=== PATIENT | male | born 1955 | race Caucasian/White ===

== ENCOUNTER 2019-06-18 00:49 | Emergency (ER) | payer BC ==
[~2019-06-18] VITALS: Ht 182.9 cm; Wt 121.6 kg
[~2019-06-18 00:49] MED LIST: ALBU90OI6 INH; K-Dur20 MEQ PO; LOSARTAN-HCTZ1 EAC1 PO
== END 2019-06-18 02:20 | disposition home or self-care (01) ==
LOC: ER 00:49
DX: S43.014A Anterior dislocation of right humerus, initial encounter (principal); F17.210 Nicotine dependence, cigarettes, uncomplicated; Z79.899 Other long term (current) drug therapy; Z79.51 Long term (current) use of inhaled steroids; W01.0XXA Fall on same level from slipping, tripping and stumbling without subsequent striking against object, initial encounter
CPT/HCPCS: 23655; 73020; 73030; 99284-25; J2405; J2704; J7030

== ENCOUNTER → 2020-04-15 | Outpatient (CLI) | payer MEDICARE ==
[~2020-04-15] MED LIST changes: +HYDCHL25 PO; +IBUP800 PO; +LOSA50 PO; +QVAR REDIHALE10.6 G2 IH
[2020-04-15 17:56] LABS: BASOPHILS ABSOLUTE AUTO 0.03 K/mm3 (0.00-0.23); BASOPHILS PERCENT AUTO 1 % (0-2); EOSINOPHILS PERCENT AUTO 4 % (0-6); Hematocrit 43.5 % (37.0-53.0); Hemoglobin 14.5 g/dL (13.5-17.5); IMMATURE GRAN ABSOLUTE AUTO 0.01 K/mm3 (0.00-0.10); IMMATURE GRAN PERCENT AUTO 0 % (0-1); LYMPHOCYTES ABSOLUTE AUTO 1.72 K/mm3 (0.84-5.20); LYMPHOCYTES PERCENT AUTO 35 % (21-46); MONOCYTES ABSOLUTE AUTO 0.43 K/mm3 (0.16-1.47); MONOCYTES PERCENT AUTO 9 % (4-13); Mean Corpuscular HGB 31.8 pg (26.0-34.0); Mean Corpuscular HGB Conc 33.3 g/dL (31.5-36.5); Mean Corpuscular Volume 95 fL (80-100); Mean Platelet Volume 9.4 fL (9.1-12.4); NEUTROPHILS ABSOLUTE AUTO 2.47 K/mm3 (1.96-9.15); NEUTROPHILS PERCENT AUTO 51 % (41-73); Platelet Count 248 K/mm3 (150-400); RDW Coefficient Variation 14.3 % (11.7-14.2); RDW Standard Deviation 50.4 fL (35.1-46.3); Red Blood Cell Count 4.56 M/mm3 (4.30-5.90); White Blood Cell Count 4.86 K/mm3 (4.00-11.30)
[2020-04-15 18:23] LABS: Alanine Aminotransfer (ALT/SGP 29 U/L (12-78); Albumin, Blood 3.8 g/dL (3.4-5.0); Albumin/Globulin Ratio 0.9 (0.8-1.8); Alk Phos 117 U/L (50-136); Anion Gap 4 mmol/L (6-16); Aspartate Aminotrans (AST/SGOT 25 U/L (12-37); Bilirubin, Total 0.6 mg/dL (0.1-1.0); Blood Urea Nitrogen 17 mg/dL (8-24); Bun/Creatinine Ratio 17.8 (12.0-20.0); CO2, Blood 27 mmol/L (21-32); Calcium, Blood 8.8 mg/dL (8.5-10.1); Chloride, Blood 106 mmol/L (98-108); Creatinine, Blood 0.96 mg/dL (0.60-1.20); Globulin, Blood 4.2 g/dL (2.2-4.0); Glomerular Filtration Rate >60 (60-); Glucose, Blood 87 mg/dL (70-99); Potassium, Blood 4.2 mmol/L (3.5-5.5); Sodium, Blood 137 mmol/L (136-145)
== END | disposition home or self-care (01) ==
LOC: LAB 14:30 → LAB SHORT 14:30
PROVIDERS: Nurse Practitioner Family
DX: I10 Essential (primary) hypertension (principal)
CPT/HCPCS: 80053; 85025

== ENCOUNTER → 2021-01-24 | Outpatient (CLI) | payer MEDICARE ==
[2021-01-24 19:44] LABS: Alanine Aminotransfer (ALT/SGP 38 U/L (12-78); Albumin, Blood 3.4 g/dL (3.4-5.0); Albumin/Globulin Ratio 0.9 (0.8-1.8); Alk Phos 106 U/L (50-136); Anion Gap 6 mmol/L (6-16); Aspartate Aminotrans (AST/SGOT 32 U/L (12-37); Bilirubin, Total 0.8 mg/dL (0.1-1.0); Blood Urea Nitrogen 19 mg/dL (8-24); Bun/Creatinine Ratio 20.5 (12.0-20.0); CO2, Blood 28 mmol/L (21-32); Calcium, Blood 8.6 mg/dL (8.5-10.1); Chloride, Blood 107 mmol/L (98-108); Creatinine, Blood 0.93 mg/dL (0.60-1.20); Globulin, Blood 3.8 g/dL (2.2-4.0); Glomerular Filtration Rate >60 (60-); Glucose, Blood 111 mg/dL (70-99); Potassium, Blood 4.2 mmol/L (3.5-5.5); Sodium, Blood 141 mmol/L (136-145); Total Protein, Blood 7.2 g/dL (6.4-8.2)
== END | disposition home or self-care (01) ==
LOC: LAB SHORT 17:37
PROVIDERS: Nurse Practitioner Family
DX: I10 Essential (primary) hypertension (principal)
CPT/HCPCS: 80053

== ENCOUNTER → 2022-06-15 | Outpatient (CLI) | payer MEDICARE ==
[2022-06-15 19:33] LABS: BASOPHILS ABSOLUTE AUTO 0.04 K/mm3 (0.00-0.23); BASOPHILS PERCENT AUTO 1 % (0-2); EOSINOPHILS ABSOLUTE AUTO 0.24 K/mm3 (0.00-0.68); EOSINOPHILS PERCENT AUTO 3 % (0-6); Hematocrit 38.2 % (37.0-53.0); Hemoglobin 12.5 g/dL (13.5-17.5); IMMATURE GRAN ABSOLUTE AUTO 0.02 K/mm3 (0.00-0.10); IMMATURE GRAN PERCENT AUTO 0 % (0-1); LYMPHOCYTES ABSOLUTE AUTO 1.43 K/mm3 (0.84-5.20); LYMPHOCYTES PERCENT AUTO 20 % (21-46); MONOCYTES ABSOLUTE AUTO 0.55 K/mm3 (0.16-1.47); MONOCYTES PERCENT AUTO 8 % (4-13); Mean Corpuscular HGB 30.9 pg (26.0-34.0); Mean Corpuscular HGB Conc 32.7 g/dL (31.5-36.5); Mean Corpuscular Volume 95 fL (80-100); Mean Platelet Volume 9.8 fL (9.1-12.4); NEUTROPHILS ABSOLUTE AUTO 4.92 K/mm3 (1.96-9.15); NEUTROPHILS PERCENT AUTO 68 % (41-73); Platelet Count 201 K/mm3 (150-400); RDW Coefficient Variation 17.7 % (11.7-14.2); RDW Standard Deviation 61.4 fL (35.1-46.3); Red Blood Cell Count 4.04 M/mm3 (4.30-5.90)
[2022-06-15 19:45] LABS: Bun/Creatinine Ratio 17.1 (12.0-20.0); Calcium, Blood 8.1 mg/dL (8.5-10.1); Creatinine, Blood 1.05 mg/dL (0.60-1.20)
[2022-06-19 05:09] LABS: HIV AB/P24 AG SCREEN Non Reactive (Non Reactive)
== END | disposition home or self-care (01) ==
LOC: LAB SHORT 15:50 → LAB 15:50
PROVIDERS: Nurse Practitioner Family
DX: Z11.59 Encounter for screening for other viral diseases (principal); D64.9 Anemia, unspecified; I10 Essential (primary) hypertension
CPT/HCPCS: 80048; 85025; 86803; 87389

== ENCOUNTER 2023-02-25 10:27 | Inpatient (IN) | payer MEDICARE ==
[~2023-02-25] VITALS: Ht 182.9 cm; Wt 116.0 kg
[2023-02-25] VITALS (11 sets, daily range): BP systolic 67–121; BP diastolic 40–87
[2023-02-25 11:52] LABS: Bicarbonate Venous 24.3 mmol/L (24.0-30.0); PCO2 Venous 50.1 mmHg (38-42); pH Blood Venous 7.34 (7.34-7.37)
[2023-02-25 12:15] LABS: Hematocrit 42.8 % (37.0-53.0); Hemoglobin 15.2 g/dL (13.5-17.5); Mean Corpuscular HGB 32.6 pg (26.0-34.0); Mean Corpuscular HGB Conc 35.5 g/dL (31.5-36.5); Mean Corpuscular Volume 92 fL (80-100); Mean Platelet Volume 9.4 fL (9.1-12.4); Platelet Count 465 K/mm3 (150-400); RDW Coefficient Variation 14.9 % (11.7-14.2); RDW Standard Deviation 50.5 fL (35.1-46.3); Red Blood Cell Count 4.66 M/mm3 (4.30-5.90); White Blood Cell Count 14.71 K/mm3 (4.00-11.30)
[2023-02-25 12:22] LABS: Magnesium, Blood 2.8 mg/dL (1.6-2.4)
[2023-02-25 12:22] LABS: International Normalized Ratio 1.14; Prothrombin Time Results 11.9 Sec (9.7-11.5)
[2023-02-25 12:44] LABS: Albumin, Blood 2.8 g/dL (3.4-5.0); Albumin/Globulin Ratio 0.5 (0.8-1.8); Bilirubin, Total 0.6 mg/dL (0.1-1.0); Bun/Creatinine Ratio 10.3 (12.0-20.0); Calcium, Blood 6.6 mg/dL (8.5-10.1); Creatinine, Blood 12.2 mg/dL (0.60-1.20); Globulin, Blood 5.1 g/dL (2.2-4.0); Potassium, Blood 2.5 mmol/L (3.5-5.5); Total Protein, Blood 7.9 g/dL (6.4-8.2)
[2023-02-25 12:59] LABS: BAND PERCENT MAN 38 % (0-8); BASOPHILS PERCENT MAN 0 % (0-2); EOSINOPHILS PERCENT MAN 0 % (0-6); LYMPHOCYTES % ATYPICAL MANUAL 1 % (0-0); LYMPHOCYTES ABSOLUTE MAN 1.17 K/mm3 (0.84-5.20); LYMPHOCYTES PERCENT MAN 7 % (21-46); MONOCYTES ABSOLUTE MAN 1.02 K/mm3 (0.16-1.47); MONOCYTES PERCENT MAN 7 % (4-13); SEG NEUTROPHILS PERCENT MAN 47 % (41-73); TOTAL CELLS COUNTED 100
[2023-02-25 13:36] LABS: Influenza A, PCR NEGATIVE (NEGATIVE); Influenza B, PCR NEGATIVE (NEGATIVE); Resp Syncytial Virus, PCR NEGATIVE (NEGATIVE); SARS-Cov-2 (COVID-19) PCR, MMC NEGATIVE (NEGATIVE)
[2023-02-25 13:49] LABS: Source, Urine Straight Cath
[2023-02-25 13:58] LABS: Appearance, Urine Hazy (Clear); Bilirubin, Urine 2+ (Neg); Blood, Urine 1+ (Neg); Color, Urine Brown (P-Yellow); Glucose Qualitative, Urine 1+ (Neg); Ketones, Urine 1+ (Neg); Leukocyte Esterase, Urine 2+ (Neg); Nitrite, Urine Pos (Neg); Protein, Urine 2+ (Neg); Specific Gravity, Urine 1.025 (1.003-1.022); Urobilinogen, Urine 1+ (Normal)
[2023-02-25 14:05] LABS: Bacteria Many /hpf; Granular Casts 0-2 /lpf (0); Mucus Light (0-Heavy); Squamous Epithelial Cells Rare /hpf (Few)
[2023-02-25 14:20] LABS: Adenovirus F 40/41 Not Detected (NOT DETECT); Astrovirus Not Detected (NOT DETECT); Campylobacter Sp Not Detected (NOT DETECT); Cryptosporidium Not Detected (NOT DETECT); Cyclospora Cayetanensis Not Detected (NOT DETECT); E. Coli O157 Not Detected (NOT DETECT); Entamoeba Histolytica Not Detected (NOT DETECT); Enteroaggregative E. coli-EAEC Not Detected (NOT DETECT); Enteropathogenic E. coli-EPEC Detected (NOT DETECT); Enterotoxigenic E. coli-ETEC Not Detected (NOT DETECT); Giardia Lamblia Not Detected (NOT DETECT); Norovirus GI/GII Not Detected (NOT DETECT); Plesiomonas Shigelloides Not Detected (NOT DETECT); Rotavirus A Not Detected (NOT DETECT); Salmonella Sp Not Detected (NOT DETECT); Sapovirus Not Detected (NOT DETECT); Shiga Toxin-prod E. coli-STEC Not Detected (NOT DETECT); Shigella/Enteroin E. coli-EIEC Not Detected (NOT DETECT); Vibrio Cholerae Not Detected (NOT DETECT); Vibrio Sp Not Detected (NOT DETECT); Yersinia Enterocolitica Not Detected (NOT DETECT)
[2023-02-25 20:34] LABS: Magnesium, Blood 2.4 mg/dL (1.6-2.4)
[2023-02-25 20:38] LABS: Albumin, Blood 2.2 g/dL (3.4-5.0); Anion Gap 18 mmol/L (6-16); Blood Urea Nitrogen 141 mg/dL (8-24); Bun/Creatinine Ratio 12.9 (12.0-20.0); CO2, Blood 19 mmol/L (21-32); Calcium, Blood 5.4 mg/dL (8.5-10.1); Chloride, Blood 96 mmol/L (98-108); Glomerular Filtration Rate 5 (60-); Glucose, Blood 130 mg/dL (70-99); Potassium, Blood 2.6 mmol/L (3.5-5.5); Sodium, Blood 133 mmol/L (136-145)
[2023-02-25 20:40] LABS: Phosphorus, Blood 7.8 mg/dL (2.5-4.9)
[2023-02-26] VITALS (62 sets, daily range): BP systolic 77–167; BP diastolic 42–95
[2023-02-26 04:26] LABS: Hematocrit 37.1 % (37.0-53.0); Hemoglobin 13.1 g/dL (13.5-17.5); Mean Corpuscular HGB 32.7 pg (26.0-34.0); Mean Corpuscular HGB Conc 35.3 g/dL (31.5-36.5); Mean Corpuscular Volume 93 fL (80-100); Platelet Count 369 K/mm3 (150-400); RDW Standard Deviation 51.4 fL (35.1-46.3); Red Blood Cell Count 4.01 M/mm3 (4.30-5.90)
[2023-02-26 04:43] LABS: BAND PERCENT MAN 14 % (0-8); BASOPHILS PERCENT MAN 0 % (0-2); EOSINOPHILS PERCENT MAN 1 % (0-6); LYMPHOCYTES % ATYPICAL MANUAL 1 % (0-0); LYMPHOCYTES PERCENT MAN 9 % (21-46); METAMYELOCYTE PERCENT MAN 1 % (0-0); MONOCYTES PERCENT MAN 7 % (4-13); SEG NEUTROPHILS PERCENT MAN 67 % (41-73); TOTAL CELLS COUNTED 100
[2023-02-26 04:45] LABS: BASOPHILS PERCENT AUTO 0 % (0-2); EOSINOPHILS ABSOLUTE AUTO 0.08 K/mm3 (0.00-0.68); EOSINOPHILS PERCENT AUTO 1 % (0-6); IMMATURE GRAN ABSOLUTE AUTO 0.11 K/mm3 (0.00-0.10); IMMATURE GRAN PERCENT AUTO 1 % (0-1); NEUTROPHILS ABSOLUTE AUTO 9.12 K/mm3 (1.96-9.15); NEUTROPHILS PERCENT AUTO 79 % (41-73)
[2023-02-26 05:03] LABS: Magnesium, Blood 2.4 mg/dL (1.6-2.4); Uric Acid, Blood 15.6 mg/dL (3.5-7.2)
[2023-02-26 05:08] LABS: Alanine Aminotransfer (ALT/SGP 19 U/L (12-78); Albumin, Blood 2.3 g/dL (3.4-5.0); Albumin/Globulin Ratio 0.6 (0.8-1.8); Alk Phos 74 U/L (50-136); Anion Gap 18 mmol/L (6-16); Aspartate Aminotrans (AST/SGOT 30 U/L (12-37); Bilirubin, Total 0.4 mg/dL (0.1-1.0); Blood Urea Nitrogen 140 mg/dL (8-24); Bun/Creatinine Ratio 12.8 (12.0-20.0); CO2, Blood 20 mmol/L (21-32); Calcium, Blood 5.9 mg/dL (8.5-10.1); Chloride, Blood 95 mmol/L (98-108); Glomerular Filtration Rate 5 (60-); Glucose, Blood 135 mg/dL (70-99); Phosphorus, Blood 7.5 mg/dL (2.5-4.9); Potassium, Blood 3.2 mmol/L (3.5-5.5); Sodium, Blood 133 mmol/L (136-145); Total Protein, Blood 6.3 g/dL (6.4-8.2)
--- NOTE | 2023-02-26 06:00 | NUR ---
SHIFT SUMMARY: PT ARRIVED ON THE UNIT AT 2044. UPON ARRIVAL HE WAS ON REQUIRING 15 MCG/MIN OF LEVOPHED TO MAINTAIN A MAP > 65. HE IN INTERMITTENT A-FIB HR OF 80 AND ON ROOM AIR MAINTAING O2 SATURATION > 93. HE DENIED ANY DIZZINESS, N/V, OR PAIN. HE WAS ABLE TO STAND AND TRANSFER TO THE BED. PTS BLOOD PRESSURE CONTINUED TO DROP, BUT STABALIZED AT 19MCG/MIN OF LEVOPHED. HE CONTINUIED TO HAVE MULTIPLE BOWEL MOVEMENTS THROUGHOUT THE NIGHT (2-3 EVERY HOUR). PT WAS ABLE TO STAND AND TRANSFER TO THE BED SIDE COMMODE. PT'S VS REMAIN THE SAME THROUGH THE NIGHT. DENIED ANY PAIN.
--- NOTE | 2023-02-26 07:45 | NUR ---
ASSUMED CARE: REPORT RECEIVED FROM DEVON JAMISON. ASSUMED CARE OF THIS PT AT APPROX 0700. ON ASSESSMENT, THE PT IS AWAKE, A&O TO ALL, REQUESTING TO USE BSC FOR BM. HE AMBULATES TO BSC W/O DIFFICULTY, SBA FROM STAFF FOR CORD/ LINE MANAGEMENT. LS DIM, PT ON 3L O2 MASK WHILE SLEEPING FOR DESATS TO 82%, OTHERWISE ON RA W/ O2 SATS > 92. MONITOR SHOWS SR W/ HR 70-80s, LEVOPHED INFUSING FOR PERSISTANT HYPOTENSION - SEE FLOWSHEET FOR TITRATIONS. PT IS HAVING LOOSE BROWN BMs APPROX Q40 MINS, STS NOT WANTING TO EAT "BECAUSE IT RUNS RIGHT THROUGH ME." ARAUZ PATENT/ DRAINING SMALL AMNTS DARK YELLOW URINE - IN PLACE FOR STRICT I&O MONITORING. SKIN OVERALL INTACT, PT STS HAVING SOME ITCHING TO UPPER BACK, USES BENADRYL CREAM AT HOME, PROVIDER DR ARRINGTON STS OKAY TO ORDER HYDROCORTISONE CREAM & APPLY PRN ITCHING. WILL CONTINUE TO MONITOR & UPDATE NEEDED.
--- NOTE | 2023-02-26 18:40 | NUR ---
SHIFT SUMMARY: NO ACUTE CHANGES THIS SHIFT. PT REMAINS A&O, ABLE TO AMBULATE STEADILY TO BSC FOR BMs. LS DIM, PT ON 3L O2 MASK WHILE SLEEPING, O2 SATS > 92% ON RA WHILE AWAKE. MONITOR SHOWS SR W/ HR 70s, LEVOPHED HAS BEEN TITRATED DOWN THIS SHIFT, CURRENTLY AT 12 MCG/MIN. PT CONTINUES TO HAVE LOOSE BROWN BMs, ALTHOUGH DECREASING IN SIZE & FREQUENCY THIS AFTERNOON. ABLE TO TOLERATE SMALL AMNTS PO INTAKE AT A TIME W/O GI UPSET. ARAUZ PATENT/ DRAINING DARK YELLOW URINE IN MOD AMNTS THIS AFTERNOON - TOTAL 825 ML UO. SKIN CONDITION OVERALL INTACT, SMALL AMNT REDNESS SURROUNDING BUTTOCKS IS BLANCHABLE, BARRIER CREAM APPLIED. WILL CONTINUE TO MONITOR & REPORT OFF TO ONCOMING RN.
[2023-02-26 20:13] LABS: Magnesium, Blood 2.3 mg/dL (1.6-2.4)
[2023-02-26 20:23] LABS: Albumin, Blood 2.4 g/dL (3.4-5.0); Anion Gap 13 mmol/L (6-16); Blood Urea Nitrogen 134 mg/dL (8-24); Bun/Creatinine Ratio 15.7 (12.0-20.0); CO2, Blood 24 mmol/L (21-32); Calcium, Blood 6.8 mg/dL (8.5-10.1); Chloride, Blood 97 mmol/L (98-108); Creatinine, Blood 8.55 mg/dL (0.60-1.20); Glomerular Filtration Rate 6 (60-); Glucose, Blood 134 mg/dL (70-99); Phosphorus, Blood 5.3 mg/dL (2.5-4.9); Potassium, Blood 2.7 mmol/L (3.5-5.5); Sodium, Blood 134 mmol/L (136-145)
[2023-02-27] VITALS (24 sets, daily range): BP systolic 90–145; BP diastolic 51–128
--- NOTE | 2023-02-27 05:44 | NUR ---
SHIFT SUMMARY: PT IS CURRENTLY RESTING COMFORTABLY IN BED. HE STARTED THE SHIFT ON 8 MCG/MIN OF LEVOPHED, BUT WAS OFF THE MEDICATION BE 2100. HE ALSO HAD FREQUENT PVC'S ON TELEMETRY WITH INTERMITTENT BIGEMINY. ORDERS WERE PLACED FOR LABS. HIS POTASSIUM WAS REPLACED X2 DOSES, SEE MAR. ECTOPY ON TELE DECREASED WITH POTASSIUM REPLEATION. HE ALSO DID CONTINUE TO HAVE 3-4 BM/HR FOR THE FIRST 4-5 HOURS OF THE SHIFT. DR. CHAVEZ WAS CONTACTED AND GAVE ORDERS. SEE MAR. PT RESPONDED WELL TO THE MEDICATION ADMINISTRATION AND WAS ABLE TO SLEEP THE REST OF THE SHIFT. HE CONTINUED TO REQUIRE 3L O2 VIA OXYMASK WHILE SLEEPING. HE DENIES ANY ABD PAIN, N/V, OR DIZZINESS. VSS.
[2023-02-27 05:50] LABS: Hematocrit 34.6 % (37.0-53.0); Hemoglobin 11.9 g/dL (13.5-17.5)
[2023-02-27 06:11] LABS: Albumin, Blood 2.3 g/dL (3.4-5.0); Anion Gap 10 mmol/L (6-16); Blood Urea Nitrogen 130 mg/dL (8-24); CO2, Blood 25 mmol/L (21-32); Calcium, Blood 6.8 mg/dL (8.5-10.1); Chloride, Blood 103 mmol/L (98-108); Creatinine, Blood 6.84 mg/dL (0.60-1.20); Glomerular Filtration Rate 8 (60-); Glucose, Blood 98 mg/dL (70-99); Magnesium, Blood 2.5 mg/dL (1.6-2.4); Potassium, Blood 3.1 mmol/L (3.5-5.5); Sodium, Blood 138 mmol/L (136-145)
--- NOTE | 2023-02-27 07:57 | NUR ---
SHIFT ASSESSMENT BEDSIDE REPORT RECEIVED FROM DEVON JAMISON. PT A&OX4, FOLLOWING COMMANDS, AMBULATES WITHOUT ASSISTANCE TO BEDSIDE COMMODE. SKIN REDDENED, CONTINUES TO ITCH, MEDICATED WITH PRN BENADRYL. DENIES DIZZINESS WHILE STANDING, GAIT STEADY. REMAINS OFF OF LEVOPHED, MAP 85. PT STATES HE FEELS MUCH BETTER, REQUESTING SOLID FOOD. CONTINUES TO HAVE LOOSE BM'S, TWO SO FAR THIS AM. ARAUZ CATHETER DC'D BY NOC NURSE, PT USING URINAL WITHOUT DIFFICULTY.
[2023-02-27 11:43] LABS: BASOPHILS ABSOLUTE AUTO 0.03 K/mm3 (0.00-0.23); BASOPHILS PERCENT AUTO 1 % (0-2); EOSINOPHILS ABSOLUTE AUTO 0.18 K/mm3 (0.00-0.68); EOSINOPHILS PERCENT AUTO 3 % (0-6); Hematocrit 35.7 % (37.0-53.0); Hemoglobin 12.4 g/dL (13.5-17.5); IMMATURE GRAN ABSOLUTE AUTO 0.05 K/mm3 (0.00-0.10); IMMATURE GRAN PERCENT AUTO 1 % (0-1); LYMPHOCYTES ABSOLUTE AUTO 1.06 K/mm3 (0.84-5.20); LYMPHOCYTES PERCENT AUTO 18 % (21-46); MONOCYTES ABSOLUTE AUTO 0.45 K/mm3 (0.16-1.47); MONOCYTES PERCENT AUTO 8 % (4-13); Mean Corpuscular HGB 32.6 pg (26.0-34.0); Mean Corpuscular HGB Conc 34.7 g/dL (31.5-36.5); Mean Corpuscular Volume 94 fL (80-100); Mean Platelet Volume 8.8 fL (9.1-12.4); NEUTROPHILS ABSOLUTE AUTO 4.08 K/mm3 (1.96-9.15); NEUTROPHILS PERCENT AUTO 70 % (41-73); Platelet Count 241 K/mm3 (150-400); RDW Coefficient Variation 15.3 % (11.7-14.2); RDW Standard Deviation 52.7 fL (35.1-46.3); White Blood Cell Count 5.85 K/mm3 (4.00-11.30)
[2023-02-28 03:10] VITALS: BP 139/75
--- NOTE | 2023-02-28 04:57 | NUR ---
SHIFT SUMMARY PATIENT HAD NO ACUTE CHANGES. AXOX 4 AND INDEPENDENT IN ROOM. TELE MONITOR NSR [address] DENIES CHEST PAIN, SOB, AND N/V. VSS/AFEBRILE. PIV REMAINS INTACT. BENADRYL 25 MG GIVEN FOR ITCHING AND TOPICAL HYDROCORTISONE X ONE. COOPERATIVE WITH CARE. CALL LIGHT IN REACH. BED IN LOWEST POSITION. WILL CONTINUE TO MONITOR UNTIL DAY SHIFT NURSE ASSUMES CARE.
[2023-02-28 05:13] LABS: BASOPHILS ABSOLUTE AUTO 0.03 K/mm3 (0.00-0.23); BASOPHILS PERCENT AUTO 1 % (0-2); EOSINOPHILS ABSOLUTE AUTO 0.17 K/mm3 (0.00-0.68); EOSINOPHILS PERCENT AUTO 3 % (0-6); Hematocrit 36.7 % (37.0-53.0); Hemoglobin 12.7 g/dL (13.5-17.5); IMMATURE GRAN ABSOLUTE AUTO 0.08 K/mm3 (0.00-0.10); IMMATURE GRAN PERCENT AUTO 1 % (0-1); LYMPHOCYTES ABSOLUTE AUTO 1.05 K/mm3 (0.84-5.20); LYMPHOCYTES PERCENT AUTO 19 % (21-46); MONOCYTES ABSOLUTE AUTO 0.49 K/mm3 (0.16-1.47); MONOCYTES PERCENT AUTO 9 % (4-13); Mean Corpuscular HGB 32.7 pg (26.0-34.0); Mean Corpuscular HGB Conc 34.6 g/dL (31.5-36.5); Mean Corpuscular Volume 95 fL (80-100); Mean Platelet Volume 8.7 fL (9.1-12.4); NEUTROPHILS ABSOLUTE AUTO 3.78 K/mm3 (1.96-9.15); NEUTROPHILS PERCENT AUTO 68 % (41-73); Platelet Count 230 K/mm3 (150-400); RDW Coefficient Variation 15.3 % (11.7-14.2); RDW Standard Deviation 53.2 fL (35.1-46.3); Red Blood Cell Count 3.88 M/mm3 (4.30-5.90)
[2023-02-28 06:05] LABS: Magnesium, Blood 2.4 mg/dL (1.6-2.4)
[2023-02-28 06:14] LABS: Albumin, Blood 2.5 g/dL (3.4-5.0); Albumin/Globulin Ratio 0.7 (0.8-1.8); Bilirubin, Total 0.5 mg/dL (0.1-1.0); Bun/Creatinine Ratio 34.6 (12.0-20.0); Calcium, Blood 8.2 mg/dL (8.5-10.1); Creatinine, Blood 2.69 mg/dL (0.60-1.20); Globulin, Blood 3.7 g/dL (2.2-4.0); Phosphorus, Blood 3.6 mg/dL (2.5-4.9); Total Protein, Blood 6.2 g/dL (6.4-8.2)
[2023-02-28 07:17] VITALS: BP 144/71
[2023-02-28 16:55] VITALS: BP 150/99
--- NOTE | 2023-02-28 19:20 | NUR ---
SHIFT SUMMARY: NO ACUTE EVENTS. DENIED PAIN. NO EVENTS ON TELEMETRY, SR-ST 94-105. ON ROOM AIR. DIFFUSE GENERALIZED RASH WITH SOME AREAS RESEMBLING HIVES; BENADRYL PO GIVES RELIEF. HAVING SOFT BM'S, NO INCONTINENCE. TOTAL OF 80 MEQ OF KCL GIVEN TODAY. IS HOPING TO D/C HOME TOMORROW.
[2023-02-28 20:11] VITALS: BP 170/91
[2023-03-01 03:42] VITALS: BP 130/85
[2023-03-01 05:24] LABS: BASOPHILS ABSOLUTE AUTO 0.02 K/mm3 (0.00-0.23); BASOPHILS PERCENT AUTO 0 % (0-2); EOSINOPHILS ABSOLUTE AUTO 0.18 K/mm3 (0.00-0.68); EOSINOPHILS PERCENT AUTO 3 % (0-6); Hematocrit 37.9 % (37.0-53.0); Hemoglobin 12.7 g/dL (13.5-17.5); IMMATURE GRAN ABSOLUTE AUTO 0.13 K/mm3 (0.00-0.10); IMMATURE GRAN PERCENT AUTO 2 % (0-1); LYMPHOCYTES ABSOLUTE AUTO 1.57 K/mm3 (0.84-5.20); LYMPHOCYTES PERCENT AUTO 26 % (21-46); MONOCYTES ABSOLUTE AUTO 0.49 K/mm3 (0.16-1.47); MONOCYTES PERCENT AUTO 8 % (4-13); Mean Corpuscular HGB 32.2 pg (26.0-34.0); Mean Corpuscular HGB Conc 33.5 g/dL (31.5-36.5); Mean Corpuscular Volume 96 fL (80-100); Mean Platelet Volume 8.9 fL (9.1-12.4); NEUTROPHILS ABSOLUTE AUTO 3.55 K/mm3 (1.96-9.15); NEUTROPHILS PERCENT AUTO 60 % (41-73); Platelet Count 224 K/mm3 (150-400); RDW Coefficient Variation 15.3 % (11.7-14.2); RDW Standard Deviation 55.2 fL (35.1-46.3); Red Blood Cell Count 3.94 M/mm3 (4.30-5.90); White Blood Cell Count 5.94 K/mm3 (4.00-11.30)
[2023-03-01 05:56] LABS: Albumin, Blood 2.6 g/dL (3.4-5.0); Anion Gap 5 mmol/L (6-16); Blood Urea Nitrogen 56 mg/dL (8-24); Bun/Creatinine Ratio 36.6 (12.0-20.0); CO2, Blood 23 mmol/L (21-32); Calcium, Blood 8.5 mg/dL (8.5-10.1); Chloride, Blood 117 mmol/L (98-108); Creatinine, Blood 1.53 mg/dL (0.60-1.20); Glomerular Filtration Rate 49 (60-); Glucose, Blood 110 mg/dL (70-99); Magnesium, Blood 2.1 mg/dL (1.6-2.4); Phosphorus, Blood 2.6 mg/dL (2.5-4.9); Potassium, Blood 3.5 mmol/L (3.5-5.5); Sodium, Blood 145 mmol/L (136-145)
[2023-03-01 07:17] VITALS: BP 135/79
[2023-03-01] MEDS ORDERED: LOSA50 PO (10:52)
[2023-03-01] MEDS ORDERED: FEROSUL325 M1 PO (10:53)
[2023-03-01] MEDS ORDERED: METO100ER PO (10:53)
[2023-03-01] MEDS ORDERED: OMEP20ER PO (10:53)
[2023-03-01] MEDS ORDERED: BANATROL PLUS1 EAC1 PO (13:26)
[2023-03-01] MEDS ORDERED: KETO15TC TOP (13:27)
[2023-03-01] MEDS ORDERED: POTCHL20ER PO (14:56)
--- NOTE | 2023-03-01 15:34 | NUR ---
PATIENT DISCHARGED TO HOME ACCOMPANIED BY A FRIEND. IV SALINE LOCK AND TELEMETRY REMOVED WITHOUT INCIDENT. ALSO, DRESSING ON R NECK FROM CL REMOVAL ALSO REMOVED; AREA CLEANED, AND BAND AID APPLIED WITH SMALL AMT ABX OINTMENT. SURROUNDING SKIN SLIGHTLY ERYTHEMATOUS WHICH MAY HAVE BEEN CAUSED BY THE PREVIOUS CHG DRESSING. PT VERBALIZED UNDERSTANDING OF D/C INSTRUCTIONS, GIVEN PAPER RX FOR LABS TO BE DRAWN ON SUNDAY. FOLLOW UP APPOINTMENT MADE FOR PATIENT. ZIO PATCH PLACED BY [facility] STAFF MEMBER AND INSTRUCTIONS GIVEN. OFF UNIT VIA W/C AT 1535. NO PERSONAL BELONGINGS LEFT BEHIND IN ROOM.
[2023-03-02 06:49] LABS: ALDOSTERONE <3.0 ng/dL; ALDOSTERONE/RENINACTIVITY CALC <30.0 ratio (<=25.0); RENIN ACTIVITY 0.1 ng/mL/hr
== END 2023-03-01 15:38 | disposition home or self-care (01) | DRG 871 ==
LOC: ER 10:27 → MEDS 19:53 → ICUE 19:53 → MEDS 02-27 18:18
PROVIDERS: Family Medicine; Internal Medicine; Internal Medicine Nephrology; Student in an Organized Health Care Education/Training Program; ADMIT Internal Medicine
PROC: 02HV33Z Insertion of Infusion Device into Superior Vena Cava, Percutaneous Approach (ICD-10-PCS; principal; 2023-02-25)
PROC: 3E03329 Introduction of Other Anti-infective into Peripheral Vein, Percutaneous Approach (ICD-10-PCS; 2023-02-25)
PROC: 3E033XZ Introduction of Vasopressor into Peripheral Vein, Percutaneous Approach (ICD-10-PCS; 2023-02-25)
DX: A41.9 Sepsis, unspecified organism (principal); N17.0 Acute kidney failure with tubular necrosis; R57.1 Hypovolemic shock; R65.21 Severe sepsis with septic shock; A04.72 Enterocolitis due to Clostridium difficile, not specified as recurrent; A04.4 Other intestinal Escherichia coli infections; N39.0 Urinary tract infection, site not specified; E87.20 Acidosis, unspecified; E87.1 Hypo-osmolality and hyponatremia; M62.82 Rhabdomyolysis; E86.9 Volume depletion, unspecified; D63.1 Anemia in chronic kidney disease; N18.9 Chronic kidney disease, unspecified; E87.6 Hypokalemia; B95.2 Enterococcus as the cause of diseases classified elsewhere; I12.9 Hypertensive chronic kidney disease with stage 1 through stage 4 chronic kidney disease, or unspecified chronic kidney disease; D50.9 Iron deficiency anemia, unspecified; F17.210 Nicotine dependence, cigarettes, uncomplicated; E83.51 Hypocalcemia; E86.0 Dehydration; E83.39 Other disorders of phosphorus metabolism; R97.20 Elevated prostate specific antigen [PSA]; I48.0 Paroxysmal atrial fibrillation; L50.9 Urticaria, unspecified; B35.4 Tinea corporis; I05.8 Other rheumatic mitral valve diseases; I87.8 Other specified disorders of veins; Z79.899 Other long term (current) drug therapy; Z11.52 Encounter for screening for COVID-19; Z98.890 Other specified postprocedural states; Z79.2 Long term (current) use of antibiotics; Z90.89 Acquired absence of other organs; Z79.51 Long term (current) use of inhaled steroids
CPT/HCPCS: 0241U; 36415; 36556; 51702; 51798; 71045; 74177; 80053; 80069; 81001; 82088; 82550; 82803; 83605; 83735; 83880; 84100; 84132; 84244; 84443; 84484; 84550; 85014; 85018; 85025; 85610; 87040; 87077; 87086; 87186; 87324; 87507; 93005; 93010; 93246; 93306; 94640; 94664; 94760; 94762; 96361-59; 96365-59; 96366-59; 96367-59; 96368; 96375-59; 99285-25; A9270; G0103; J0612; J0692; J0744; J1644; J2405; J3480; J7030; J7050; J7060; J7070; J7120; Q9967

== ENCOUNTER → 2023-03-05 | Outpatient (CLI) | payer MEDICARE ==
[~2023-03-05] MED LIST changes: +BANATROL PLUS1 EAC1 PO; +FEROSUL325 M1 PO; +KETO15TC TOP; +METO100ER PO; +OMEP20ER PO; +POTCHL20ER PO
[2023-03-05 18:54] LABS: BASOPHILS ABSOLUTE AUTO 0.04 K/mm3 (0.00-0.23); BASOPHILS PERCENT AUTO 1 % (0-2); EOSINOPHILS ABSOLUTE AUTO 0.14 K/mm3 (0.00-0.68); EOSINOPHILS PERCENT AUTO 2 % (0-6); Hematocrit 39.9 % (37.0-53.0); Hemoglobin 13.1 g/dL (13.5-17.5); IMMATURE GRAN ABSOLUTE AUTO 0.05 K/mm3 (0.00-0.10); IMMATURE GRAN PERCENT AUTO 1 % (0-1); LYMPHOCYTES ABSOLUTE AUTO 1.15 K/mm3 (0.84-5.20); LYMPHOCYTES PERCENT AUTO 18 % (21-46); MONOCYTES ABSOLUTE AUTO 0.35 K/mm3 (0.16-1.47); MONOCYTES PERCENT AUTO 5 % (4-13); Mean Corpuscular HGB 32.4 pg (26.0-34.0); Mean Corpuscular HGB Conc 32.8 g/dL (31.5-36.5); Mean Corpuscular Volume 99 fL (80-100); Mean Platelet Volume 9.4 fL (9.1-12.4); NEUTROPHILS ABSOLUTE AUTO 4.84 K/mm3 (1.96-9.15); NEUTROPHILS PERCENT AUTO 74 % (41-73); Platelet Count 228 K/mm3 (150-400); RDW Coefficient Variation 15.5 % (11.7-14.2); RDW Standard Deviation 55.7 fL (35.1-46.3); Red Blood Cell Count 4.04 M/mm3 (4.30-5.90); White Blood Cell Count 6.57 K/mm3 (4.00-11.30)
[2023-03-05 19:55] LABS: Potassium, Blood 4.6 mmol/L (3.5-5.5)
== END | disposition home or self-care (01) ==
LOC: LAB SHORT 17:17 → LAB 17:17
PROVIDERS: Nurse Practitioner Family
DX: N17.9 Acute kidney failure, unspecified (principal); D64.9 Anemia, unspecified
CPT/HCPCS: 84132; 84295; 85025

== ENCOUNTER 2023-03-17 10:28 | Inpatient (IN) | payer MEDICARE ==
[2023-03-17] VITALS (21 sets, daily range): BP systolic 36–137; BP diastolic 14–102
[~2023-03-17] VITALS: Ht 175.3 cm; Wt 123.0 kg
[2023-03-17] MEDS ORDERED: NS 1,000 ML IV SCH ×3 (11:20→12:50)
[2023-03-17 11:35] LABS: Hematocrit 48.6 % (37.0-53.0); Hemoglobin 16.1 g/dL (13.5-17.5); Mean Corpuscular HGB 32.9 pg (26.0-34.0); Mean Corpuscular HGB Conc 33.1 g/dL (31.5-36.5); Mean Corpuscular Volume 99 fL (80-100); Mean Platelet Volume 10.2 fL (9.1-12.4); Platelet Count 265 K/mm3 (150-400); RDW Coefficient Variation 15.1 % (11.7-14.2); Red Blood Cell Count 4.89 M/mm3 (4.30-5.90); White Blood Cell Count 5.12 K/mm3 (4.00-11.30)
[2023-03-17] MEDS ORDERED: Adenosine 3 MG/ML 2 ML Vial IV ONE (11:35)
[2023-03-17 11:56] LABS: Influenza A, PCR NEGATIVE (NEGATIVE); Influenza B, PCR NEGATIVE (NEGATIVE); Resp Syncytial Virus, PCR NEGATIVE (NEGATIVE); SARS-Cov-2 (COVID-19) PCR, MMC NEGATIVE (NEGATIVE)
[2023-03-17 11:56] LABS: BAND PERCENT MAN 26 % (0-8); BASOPHILS PERCENT MAN 0 % (0-2); EOSINOPHILS PERCENT MAN 0 % (0-6); LYMPHOCYTES ABSOLUTE MAN 1.53 K/mm3 (0.84-5.20); LYMPHOCYTES PERCENT MAN 30 % (21-46); METAMYELOCYTE PERCENT MAN 6 % (0-0); MONOCYTES ABSOLUTE MAN 0.51 K/mm3 (0.16-1.47); MONOCYTES PERCENT MAN 10 % (4-13); NEUTROPHILS ABSOLUTE MAN 2.76 K/mm3 (1.96-9.15); SEG NEUTROPHILS PERCENT MAN 28 % (41-73); TOTAL CELLS COUNTED 100
[2023-03-17 12:00] LABS: Albumin, Blood 2.9 g/dL (3.4-5.0); Albumin/Globulin Ratio 0.6 (0.8-1.8); Bun/Creatinine Ratio 13.5 (12.0-20.0); Calcium, Blood 8.4 mg/dL (8.5-10.1); Creatinine, Blood 4.01 mg/dL (0.60-1.20); Globulin, Blood 5.1 g/dL (2.2-4.0); Potassium, Blood 3.9 mmol/L (3.5-5.5)
[2023-03-17] MEDS ORDERED: NS 1,000 ML IV ONE (12:23)
[2023-03-17] MEDS ORDERED: Adenosine 3 MG/ML 4ML Vial IV ONE (12:35)
[2023-03-17] MEDS ORDERED: Acetaminophen 325 MG TABLET PO PRN (13:15)
[2023-03-17] MEDS ORDERED: Lactated Ringer's 1,000 ML IV SCH (13:15)
[2023-03-17] MEDS ORDERED: FLU VACC QS2023-24(6MOS UP)/PF 60 MCG/0.5 ML SYRINGE IM ONE (13:15)
[2023-03-17] MEDS ORDERED: NS IV ONE (16:00)
[2023-03-17] MEDS ORDERED: VANCOMYCIN HCL IV ONE (16:00)
[2023-03-17 16:36] LABS: PCO2 Arterial 41.2 mmHg (35-45); PO2 Arterial 134 mmHg (80-100); pH Blood Arterial 6.99 (7.35-7.45)
[2023-03-17] MEDS ORDERED: NS 500 ML IV ONE (16:36)
[2023-03-17 16:41] LABS: Magnesium, Blood 3.7 mg/dL (1.6-2.4)
[2023-03-17 16:43] LABS: Bun/Creatinine Ratio 12.9 (12.0-20.0); Creatinine, Blood 4.33 mg/dL (0.60-1.20); Phosphorus, Blood 8.7 mg/dL (2.5-4.9); Potassium, Blood 5.2 mmol/L (3.5-5.5)
[2023-03-17] MEDS ORDERED: propofoL 100 ML IV ONE (16:50)
[2023-03-17] MEDS ORDERED: Vasopressin 50 UNITS in NS 50 ML IV SCH (17:05)
[2023-03-17] MEDS ORDERED: propofoL 100 ML IV SCH (17:05)
[2023-03-17] MEDS ORDERED: PHENYLEPHRINE HCL IV SCH ×2 (17:10→19:10)
[2023-03-17] MEDS ORDERED: NS IV SCH ×2 (17:10→19:10)
[2023-03-17] MEDS ORDERED: Calcium Chloride 10% 2,000 MG in NS 100 ML IV ONE (17:10)
[2023-03-17] MEDS ORDERED: Sodium Bicarb 8.4% Inj 150 MEQ in Dextrose 5% 1,000 ML IV ONE (17:25)
[2023-03-17] MEDS ORDERED: FentaNYL Citrate 50 MCG/ML 2 ML Injection ONE (17:48)
[2023-03-17] MEDS ORDERED: LORazepam 2 MG/ML 1ML Injection IV PRN (17:50)
[2023-03-17] MEDS ORDERED: FentaNYL Citrate 50 MCG/ML 2 ML Injection IV PRN (17:55)
[2023-03-17] MEDS ORDERED: Lactated Ringer's 1,000 ML IV ONE ×2 (19:01→19:05)
[2023-03-17 19:07] LABS: PCO2 Arterial 55.7 mmHg (35-45); PO2 Arterial 158 mmHg (80-100)
[2023-03-17 19:08] LABS: pH Blood Arterial 7.13 (7.35-7.45)
[2023-03-17] MEDS ORDERED: Chlorhexidine Mouth Care 15 ML UDC MT SCH (20:00)
[2023-03-17 20:27] LABS: Hematocrit 40.6 % (37.0-53.0); Hemoglobin 13.1 g/dL (13.5-17.5); Mean Corpuscular HGB 32.5 pg (26.0-34.0); Mean Corpuscular HGB Conc 32.3 g/dL (31.5-36.5); Mean Corpuscular Volume 101 fL (80-100); Mean Platelet Volume 10.6 fL (9.1-12.4); NRBC ABSOLUTE 0.08 K/mm3 (0.00-0.02); NRBC Auto 1.3 /100 WBC (0.0-0.2); Platelet Count 167 K/mm3 (150-400); RDW Coefficient Variation 15.3 % (11.7-14.2); RDW Standard Deviation 57.4 fL (35.1-46.3); Red Blood Cell Count 4.03 M/mm3 (4.30-5.90); White Blood Cell Count 6.12 K/mm3 (4.00-11.30)
[2023-03-17 20:51] LABS: Bun/Creatinine Ratio 15.5 (12.0-20.0); Calcium, Blood 5.9 mg/dL (8.5-10.1); Creatinine, Blood 2.78 mg/dL (0.60-1.20)
[2023-03-17 20:52] LABS: Potassium, Blood 3.2 mmol/L (3.5-5.5)
[2023-03-17] MEDS ORDERED: Potassium Chl 20MEQ/Water100ML 100 ML IV ONE (21:15)
[2023-03-17 21:16] LABS: BAND PERCENT MAN 7 % (0-8); BASOPHILS PERCENT MAN 0 % (0-2); EOSINOPHILS ABSOLUTE MAN 0.48 K/mm3 (0.00-0.68); EOSINOPHILS PERCENT MAN 8 % (0-6); LYMPHOCYTES % ATYPICAL MANUAL 2 % (0-0); LYMPHOCYTES ABSOLUTE MAN 2.99 K/mm3 (0.84-5.20); LYMPHOCYTES PERCENT MAN 47 % (21-46); METAMYELOCYTE ABSOLUTE MAN 0.48 K/mm3 (0.00-0.00); METAMYELOCYTE PERCENT MAN 8 % (0-0); MONOCYTES ABSOLUTE MAN 0.18 K/mm3 (0.16-1.47); MONOCYTES PERCENT MAN 3 % (4-13); MYELOCYTE ABSOLUTE MAN 0.18 K/mm3 (0.00-0.00); MYELOCYTE PERCENT MAN 3 % (0-0); NEUTROPHILS ABSOLUTE MAN 1.77 K/mm3 (1.96-9.15); SEG NEUTROPHILS PERCENT MAN 22 % (41-73); TOTAL CELLS COUNTED 100
[2023-03-18] MEDS ORDERED: Hydrogen Peroxide 1.5 % Solution MT SCH ×3
[2023-03-18] MEDS ORDERED: Hydrocortisone Sod Succinate 100 MG Vial IV SCH
[2023-03-18 01:14] VITALS: BP 87/68
[2023-03-18] MEDS ORDERED: NS 500 ML IV SCH (02:35)
[2023-03-18 04:02] LABS: PCO2 Arterial 47.4 mmHg (35-45); PO2 Arterial 66.4 mmHg (80-100); pH Blood Arterial <6.80 (7.35-7.45)
[2023-03-18 04:05] LABS: Hematocrit 40.2 % (37.0-53.0); Hemoglobin 11.8 g/dL (13.5-17.5); Mean Corpuscular HGB 32.4 pg (26.0-34.0); Mean Corpuscular HGB Conc 29.4 g/dL (31.5-36.5); NRBC ABSOLUTE 0.25 K/mm3 (0.00-0.02); NRBC Auto 2.9 /100 WBC (0.0-0.2); Platelet Count 53 K/mm3 (150-400); RDW Coefficient Variation 15.3 % (11.7-14.2); RDW Standard Deviation 63.3 fL (35.1-46.3); Red Blood Cell Count 3.64 M/mm3 (4.30-5.90); White Blood Cell Count 8.75 K/mm3 (4.00-11.30)
[2023-03-18 04:34] LABS: Magnesium, Blood 2.8 mg/dL (1.6-2.4)
[2023-03-18 04:42] LABS: BASOPHILS ABSOLUTE AUTO 0.05 K/mm3 (0.00-0.23); BASOPHILS PERCENT AUTO 1 % (0-2); EOSINOPHILS ABSOLUTE AUTO 0.53 K/mm3 (0.00-0.68); EOSINOPHILS PERCENT AUTO 6 % (0-6); IMMATURE GRAN ABSOLUTE AUTO 1.01 K/mm3 (0.00-0.10); IMMATURE GRAN PERCENT AUTO 12 % (0-1); LYMPHOCYTES ABSOLUTE AUTO 2.94 K/mm3 (0.84-5.20); LYMPHOCYTES PERCENT AUTO 34 % (21-46); MONOCYTES ABSOLUTE AUTO 0.41 K/mm3 (0.16-1.47); MONOCYTES PERCENT AUTO 5 % (4-13); Mean Corpuscular Volume 110 fL (80-100); NEUTROPHILS ABSOLUTE AUTO 3.81 K/mm3 (1.96-9.15); NEUTROPHILS PERCENT AUTO 44 % (41-73)
[2023-03-18 04:54] LABS: Alanine Aminotransfer (ALT/SGP 882 U/L (12-78); Albumin, Blood 1.1 g/dL (3.4-5.0); Albumin/Globulin Ratio 0.4 (0.8-1.8); Alk Phos 101 U/L (50-136); Anion Gap 20 mmol/L (6-16); Aspartate Aminotrans (AST/SGOT 1964 U/L (12-37); Bilirubin, Total 0.9 mg/dL (0.1-1.0); Blood Urea Nitrogen 49 mg/dL (8-24); Bun/Creatinine Ratio 11.9 (12.0-20.0); CO2, Blood 6 mmol/L (21-32); Calcium, Blood 6.5 mg/dL (8.5-10.1); Chloride, Blood 96 mmol/L (98-108); Creatinine, Blood 4.12 mg/dL (0.60-1.20); Globulin, Blood 2.5 g/dL (2.2-4.0); Glomerular Filtration Rate 15 (60-); Glucose, Blood 347 mg/dL (70-99); Phosphorus, Blood 9.9 mg/dL (2.5-4.9); Potassium, Blood 6.5 mmol/L (3.5-5.5); Sodium, Blood 122 mmol/L (136-145); Total Protein, Blood 3.6 g/dL (6.4-8.2)
[2023-03-18] MEDS ORDERED: Pantoprazole Sodium 40 MG Injection IV SCH ×2 (06:00)
[2023-03-18] MEDS ORDERED: Heparin Sodium,Porcine 5,000 UNIT/0.5 ML SDV SC SCH (09:00)
[2023-03-18] MEDS ORDERED: EPINEPhrine HCl 0.1 MG/ML 10ML SYR XX ONE (10:06)
[2023-03-18] MEDS ORDERED: Dextrose 50% 50 ML Syringe IV ONE (10:06)
[2023-03-18] MEDS ORDERED: Calcium Chloride 10% 10 ML SYR IV ONE (10:06)
[2023-03-18] MEDS ORDERED: DOPamine 400 MG/Dextrose 250 ML Bag IV ONE (10:06)
[2023-03-18] MEDS ORDERED: Vasopressin 20 UNITS/ML 1ML Vial SC ONE (10:06)
[2023-03-18] MEDS ORDERED: Sodium Bicarb 8.4% 50 mEq Syringe IV ONE (10:06)
[2023-03-18] MEDS ORDERED: Vancomycin HCL 1,000 MG in NS 100 ML IV ONE (12:00)
== END 2023-03-18 04:45 | DRG 871 ==
LOC: ER 10:28 → ICUE 13:13
PROVIDERS: Internal Medicine Critical Care Medicine; Student in an Organized Health Care Education/Training Program; ADMIT Hospitalist
PROC: 02HV33Z Insertion of Infusion Device into Superior Vena Cava, Percutaneous Approach (ICD-10-PCS; principal; 2023-03-17)
PROC: 3E033XZ Introduction of Vasopressor into Peripheral Vein, Percutaneous Approach (ICD-10-PCS; principal; 2023-03-17)
PROC: 4A133B1 Monitoring of Arterial Pressure, Peripheral, Percutaneous Approach (ICD-10-PCS; principal; 2023-03-17)
PROC: 5A1935Z Respiratory Ventilation, Less than 24 Consecutive Hours (ICD-10-PCS; principal; 2023-03-17)
PROC: 5A12012 Performance of Cardiac Output, Single, Manual (ICD-10-PCS; principal; 2023-03-17)
PROC: 3E03329 Introduction of Other Anti-infective into Peripheral Vein, Percutaneous Approach (ICD-10-PCS; principal; 2023-03-17)
PROC: 4A133J1 Monitoring of Arterial Pulse, Peripheral, Percutaneous Approach (ICD-10-PCS; principal; 2023-03-17)
PROC: 4A133R1 Monitoring of Arterial Saturation, Peripheral, Percutaneous Approach (ICD-10-PCS; principal; 2023-03-17)
PROC: 0BH17EZ Insertion of Endotracheal Airway into Trachea, Via Natural or Artificial Opening (ICD-10-PCS; principal; 2023-03-17)
PROC: 03HY32Z Insertion of Monitoring Device into Upper Artery, Percutaneous Approach (ICD-10-PCS; principal; 2023-03-17)
DX: A41.9 Sepsis, unspecified organism (principal); J18.9 Pneumonia, unspecified organism; J69.0 Pneumonitis due to inhalation of food and vomit; N17.9 Acute kidney failure, unspecified; I47.10 Supraventricular tachycardia, unspecified; J44.0 Chronic obstructive pulmonary disease with (acute) lower respiratory infection; R57.9 Shock, unspecified; K56.609 Unspecified intestinal obstruction, unspecified as to partial versus complete obstruction; Z66 Do not resuscitate; R65.20 Severe sepsis without septic shock; I71.40 Abdominal aortic aneurysm, without rupture, unspecified; F17.210 Nicotine dependence, cigarettes, uncomplicated; N28.89 Other specified disorders of kidney and ureter; I12.9 Hypertensive chronic kidney disease with stage 1 through stage 4 chronic kidney disease, or unspecified chronic kidney disease; N18.30 Chronic kidney disease, stage 3 unspecified; E66.01 Morbid (severe) obesity due to excess calories; I48.91 Unspecified atrial fibrillation; F10.20 Alcohol dependence, uncomplicated; N40.0 Benign prostatic hyperplasia without lower urinary tract symptoms; I48.0 Paroxysmal atrial fibrillation; R19.7 Diarrhea, unspecified; E86.1 Hypovolemia; Z87.19 Personal history of other diseases of the digestive system; Z11.52 Encounter for screening for COVID-19
CPT/HCPCS: 0241U; 31500; 36569; 36600; 36620; 51702; 51798; 71045; 74176; 80048; 80053; 80202; 82330; 82803; 83605; 83735; 83880; 84100; 84484; 85025; 85379; 87040; 93005; 93010; 94002; 96361; 96374; 99285-25; C1751; J0153; J0171; J1265; J1720; J2185; J2371; J2704; J3010; J3370; J3480; J7030; J7040; J7050; J7060; J7070; J7120